=== PATIENT | male | born 1930 | race Caucasian/White ===

== ENCOUNTER 2017-04-02 09:49 | Inpatient (IN) | payer OTHER ==
[~2017-04-02] VITALS: Ht 157.5 cm; Wt 63.5 kg
[~2017-04-02 09:49] MED LIST: 378 PO; ATIVAN0.5 M1 PO; CLA10 PO; COL100 PO; COR3 PO; DUL5 PO; ECO81 PO; FOL1 PO; GAS RELIEF80 MG CH; GEMFIBROZIL600 PO; HEP5I SC; IPRATROPIUM BROM3 M2 HHN; LAC PO; LIPI10 PO; LIPI20 PO; METOPROLOL TART25 M1 PO; NPHOS PO; PEP20 PO; PROTONIX40 MG PO; THERA TABS1 TAB PO; THI100 PO; XAN5 PO; ZES10 PO; [UNRECOGNIZED DRUG - OTHER] IV
--- NOTE | 2017-04-02 10:07 | NUR ---
DR CAMPOS AT BEDSIDE FOR MSE.
--- NOTE | 2017-04-02 10:07 | NUR ---
PT IS A 86 YEAR OLD MALE, PRESENTS TO ED WITH C/O MID UPPER ABDOMINAL PAIN SINCE 0630 THIS AM, NAUSEA WITHOUT VOMITING, NO DIARRHEA OR CONSTIPATION REPORTED. PT REPORTS UPON ASSESSMENT THAT PAIN IS SLOWLY SUBSIDING. PT BREATHING IS EVEN AND UNLABORED, NO S/S OF RESPRAITORY DISTRESS. SPEECH IS CLEAR AND APPROPRIATE. PT A/O X4. SKIN IS WARM, DRY AND INTACT. MSE PERFORMED BY DR. CAMPOS.
[2017-04-02 10:44] LABS: CALCIUM 8.7 mg/dL (8.5-10.1); CHLORIDE SERUM 99 mmol/L (98-107); CREATININE SERUM 0.9 mg/dL (0.7-1.3); GLUCOSE SERUM 168 mg/dL (74-106); POTASSIUM SERUM 3.7 mmol/L (3.5-5.1); SODIUM SERUM 136 mmol/L (136-145)
[2017-04-02 10:56] LABS: ALBUMIN 3.5 g/dL (3.4-5.0); ALKALINE PHOSPHATASE 87 U/L (46-116); ALT/SGPT 22 U/L (16-63); AST/SGOT 22 U/L (15-37); BILIRUBIN TOTAL 0.71 mg/dL (0.20-1.00); TOTAL PROTEIN, SERUM 7.8 g/dL (6.4-8.2)
[2017-04-02 11:16] LABS: BASOPHIL % 0.1 % (0-2); PLATELET COUNT 190 x10^3mcL (130-400); RED CELL DISTRIBUTION WIDTH 14.3 % (11.5-14.5)
[2017-04-02 11:35] LABS: LIPASE 4357 IU/L (73-393)
--- NOTE | 2017-04-02 12:59 | NUR ---
REPORT CALLED TO VELIA ORTIZ, SHE WILL ASSUME CARE PRIMARY RN POST TRANSFER.
[2017-04-02 13:10] LABS: T3 TOTAL 0.87 ng/mL
[2017-04-02 13:12] LABS: FREE T4 1.26 ng/dL (0.76-1.46); FREE THYROXINE INDEX 3.1 ug/dL (1.4-4.5); T4(THYROXINE) 7.8 ug/dL (4.7-13.3)
--- NOTE | 2017-04-02 13:20 | NUR ---
RECEIVED PT FROM ED VIA DENIS, CAME IN DUE TO ABDOMINAL PAIN. AAOX2 (PERSON, PLACE AND BIRTHDATE). ABLE TO FOLLOW COMMANDS. NO SOB NOTED, LUNG SOUNDS DIMINISHED ON AUSCULTATION. DENIES CHEST PAIN/PRESSURE. DENIES ABDOMINAL PAIN/NAUSEA/VOMITING AT THIS TIME. SON AT BEDSIDE. SIDE RAILS UPX2. CALL LIGHT ON REACH. MEDICAL STUDENT AT BEDSIDE. PRIMARY NURSE LIAN AT BEDSIDE FOR CONTINUITY OF CARE
[2017-04-02 13:24] VITALS: BP 152/66
[2017-04-02 13:32] VITALS: Ht 157.5 cm; Wt 63.5 kg
[2017-04-02 14:02] LABS: MAGNESIUM 1.8 mg/dL (1.8-2.4); PHOSPHOROUS 2.9 mg/dL (2.5-4.9)
[2017-04-02 15:57] LABS: microscopic required? NO
[2017-04-02 16:13] VITALS: BP 146/63
[2017-04-02 16:15] LABS: urine erythrocyte NEGATIVE (NEGATIVE)
--- NOTE | 2017-04-02 18:33 | NUR ---
PATIENT SITTING IN BED. SON AT BEDSIDE. AMBULATED IN HALLWAY, NO COMPLAINTS OF FATIGUE. VS STABLE. NO SIGNS OF ACUTE DISTRESS. BED IN LOW POSITION. CALL LIGHT WITHIN REACH. WILL ENDORSE PATIENT TO ONCOMING SHIFT.
--- NOTE | 2017-04-02 20:06 | NUR ---
RECEIVED PT FROM PREVIOUS SHIFT NURSE. PT AOX3. FORGETFUL AT TIMES. TELE #3, NSR, HR 64. DENIES CP/PRESSURE. PULSES PRESENT, NO EDEMA. LUNG SOUNDS DIMINISHED, RA. DENIES SOB/DIFFICULTY BREATHING. BOWEL SOUND ACTIVE. VOIDS FREELY. AMBULATORY. SKIN INTACT. IV IN LFA, INTACT AND PATENT. BED IN LOWEST POSITION. CALL LIGHT WITHIN REACH. WILL CONTINUE TO MONITOR.
[2017-04-02 21:17] VITALS: BP 131/65
[2017-04-03] VITALS (7 sets, daily range): BP systolic 128–167; BP diastolic 60–84
--- NOTE | 2017-04-03 02:00 | NUR ---
PT DOES NOT C/O ANY PAIN. PT RESTING IN BED. RR EVEN AND UNLABORED. NO ACUTE DISTRESS NOTED. CALL LIGHT WITHIN REACH. BED IN LOWEST POSITION. BED ALARM ON. WILL CONTINUE TO MONITOR.
[2017-04-03 05:55] LABS: BASOPHIL % 0.3 % (0-2); PLATELET COUNT 159 x10^3mcL (130-400); RED CELL DISTRIBUTION WIDTH 14.4 % (11.5-14.5)
[2017-04-03 06:23] LABS: AMYLASE 106 U/L (25-115); CALCIUM 8.1 mg/dL (8.5-10.1); CARBON DIOXIDE 26.4 mmol/L (21-32); CHLORIDE SERUM 106 mmol/L (98-107); CREATININE SERUM 0.7 mg/dL (0.7-1.3); GLUCOSE SERUM 73 mg/dL (74-106); LIPASE 1256 IU/L (73-393); MAGNESIUM 1.9 mg/dL (1.8-2.4); PHOSPHOROUS 3.1 mg/dL (2.5-4.9); POTASSIUM SERUM 3.5 mmol/L (3.5-5.1); SODIUM SERUM 141 mmol/L (136-145)
--- NOTE | 2017-04-03 06:54 | NUR ---
REPORT GIVEN TO OR. PRE-OP BATH GIVEN. FAMILY NOTIFIED ABOUT PROCEDURE AT 8AM. DR. SMITH TO INFORM PT ON PROCEDURE AND OBTAIN CONSENT. WILL ENDORSE TO ONCOMING SHIFT NURSE.
--- NOTE | 2017-04-03 07:15 | NUR ---
PATIENT SLEEPING. NO SIGN OF ACUTE DISTRESS. BED IN LOW POSITION. CALL LIGHT WITHIN REACH. GOING FOR PROCEDURE.
--- NOTE | 2017-04-03 07:24 | NUR ---
PATIENT WENT TO OR. VS STABLE AND NO ACUTE DISTRESS.
--- NOTE | 2017-04-03 10:32 | NUR ---
PT BACK FROM OR. DROWSY BUT EASILY ARROUSABLE. DENIES PAIN AT THIS TIME. VS TEMP 97.5 RR 14 HR 56 BP 167/70 MAP 102 02 SAT 98% RA. 4 BANDAIDS TO ABD. CDI. FAMILY AT BEDSIDE. WILL CONTINUE TO MONITOR.
--- NOTE | 2017-04-03 13:01 | NUR ---
PATIENT EATING LUNCH. VERBALIZED RELIEF FROM DILAUDID. NO ACUTE DISTRESS. IV FLUIDS INFUSING. FAMILY AT BEDSIDE. BED IN LOW POSITION. CALL LIGHT WITHIN REACH. WILL CONTINUE TO MONITOR.
[2017-04-03] MEDS ORDERED: LORAZEPAM0.5 MG PO (17:24)
[2017-04-03] MEDS ORDERED: ASPIR 8181 MG PO (17:24)
[2017-04-03] MEDS ORDERED: MULTI-VITAMINS1 TAB PO (17:25)
[2017-04-03] MEDS ORDERED: PHARMASSURE FO0.4 MG PO (17:25)
[2017-04-03] MEDS ORDERED: LISINOPRIL10 MG PO (17:25)
[2017-04-03] MEDS ORDERED: VITAMIN B121000 MCG PO (17:26)
[2017-04-03] MEDS ORDERED: D-20001 TAB PO (17:26)
[2017-04-03] MEDS ORDERED: SYNTHROID25 MCG PO (17:27)
--- NOTE | 2017-04-03 18:55 | NUR ---
PATIENT SLEEPING. NO SIGN OF ACUTE DISTRESS. AMBULATED TO RESTROOM WITH ASSIST EARLIER. IV FLUIDS FLOWING. PT BURPING. TOLERATING DIET WELL. BANDAIDS TO ABD CDI. FAMILY AT BEDSIDE. CALL LIGHT WITHIN REACH. BED IN LOW POSITION. WILL ENDORSE TO INCOMING SHIFT.
--- NOTE | 2017-04-03 19:11 | NUR ---
NURSING CO-SIGN THE DOCUMENTATION ENTERED BY THE RN ELIZABETH HAS BEEN REVIEWED. REVIEWED/CO-SIGNED BY: Delaney Banuelos DOCUMENTATION DONE BY: SANG BURK
--- NOTE | 2017-04-03 19:57 | NUR ---
PT CURRENTLY RESTING IN BED, NO ACUTE DISTRESS. A/O X3, FORGETFUL AT TIMES. NO TELE, MED/SURG. DENIES CHEST PAIN. PULSES PALPABLE IN ALL EXTREMITIES, NO EDEMA NOTED. LUNG SOUNDS DIMINISHED BILATERALLY, DENIES SOB. BOWEL SOUNDS ACTIVE, LAST BM 04/02/17. VOIDING WELL. AMBULATORY. ABD BANDAID X4, CDI. DENIES PAIN AT THIS TIME. IV PATENT AND INTACT. BED IN LOWEST POSITION, SIDE RAILS UP X2, SCDS IN PLACE, CALL LIGHT WITHIN REACH. WILL CONTINUE TO MONITOR.
--- NOTE | 2017-04-04 00:33 | NUR ---
PT CURRENTLY RESTING IN BED, C/O ABD PAIN 01/13, MEDICATED PER EMAR. WILL CONTINUE TO MONITOR.
--- NOTE | 2017-04-04 04:10 | NUR ---
PT C/O OF SEVERE ABD PAIN, MEDICATED PER EMAR. PT STATED UNABLE TO BREATH WELL DUE TO PAIN, O2 ADMINISTERED VIA NASAL CANULA AT 2L. BLOOD PRESSURE 200/94, DR RAMIREZ AWARE, MEDICATED PER EMAR. WILL CONTINUE TO MONITOR.
[2017-04-04 04:43] LABS: BASOPHIL % 0.3 % (0-2); PLATELET COUNT 191 x10^3mcL (130-400); RED CELL DISTRIBUTION WIDTH 14.3 % (11.5-14.5)
[2017-04-04 05:02] LABS: ALKALINE PHOSPHATASE 102 U/L (46-116); ALT/SGPT 73 U/L (16-63); AST/SGOT 100 U/L (15-37); BILIRUBIN TOTAL 1.1 mg/dL (0.20-1.00); CARBON DIOXIDE 21.5 mmol/L (21-32); CHLORIDE SERUM 105 mmol/L (98-107); CREATININE SERUM 0.9 mg/dL (0.7-1.3); GLUCOSE SERUM 220 mg/dL (74-106); LIPASE 170 IU/L (73-393); POTASSIUM SERUM 4.5 mmol/L (3.5-5.1); SODIUM SERUM 136 mmol/L (136-145); TOTAL PROTEIN, SERUM 6.8 g/dL (6.4-8.2)
[2017-04-04 05:03] LABS: ALBUMIN 2.8 g/dL (3.4-5.0)
[2017-04-04 05:48] VITALS: BP 130/82
--- NOTE | 2017-04-04 06:29 | NUR ---
PT SLEPT PERIODICALLY THROUGHOUT NIGHT, NO ACUTE DISTRESS. ALL NEEDS MET AND ATTENDED TO. NO SIGNIFICANT CHANGES. IV PATENT AND INTACT. MEDICATED PAIN PER EMAR. SIDE RAILS UP X2, SCDS IN PLACE, CALL LIGHT WITHIN REACH. WILL ENDORSE CARE TO ONCOMING NURSE.
--- NOTE | 2017-04-04 10:05 | NUR ---
AT 0705 - RECEIVED PATIENT FROM NIGHT NURSE. PATIENT SITTING ON SIDE OF BED AND APPEARS TO HAVE GONE TO SLEEP. WOKE UP PATIENT AND ASSISTED TO LIE IN BED. BED EXIT ALARM ACTIVATED. PATIENT APPEARS ORIENTED TO PERSON AND PLACE. HARD OF HEARING AND CZECH SPEAKING. MONITOR SHOWING SINUS RHYHTM; RATE 93. IV INFUSING D5 1/2 NS WITH 20 MEQ KCL AT 70 ML/HR. DRESSINGS TO SURGICAL INCIISONS ON ABDOMEN ARE DRY AND INTACT. AT 0800 - PATIENT TOLERATING CLEAR LIQUIDS BUT WHEN ATTEMPTED FULL LIQUID FOR BREAKFAST, STARTED VOMITING. SEEN BY DR BAUER. NEW ORDERS RECEIVED. AT 0820 - SEEN BY DR PENDLETON DURING MORNING ROUNDS. MEDICAL TEAM DOCTORS, JLUIS HAMPTON AND MYSELF PRIMARY NURSE ALSO PRESENT. DR PENDLETON SPOKE WUTH PATIENT THROUGH SOLAR PHOTOVOLTAIC DESIGNER. PATIENT ENCOURAGED BY TO USE INSENTIVE SPIROMETER. AT 0900 - PHYSICAL THERAPY AT BEDSIDE. AT 0935 - MEDICATED WITH NORCO FOR PAIN. AT 1020 - FAMILY AT BEDSIDE AND UPDATED ON PATIENT CONDITION AND PLAN OF CARE. PATIENT ABLE TO USE INSENTIVE SPIROMTER EFFECTIVELY BUT NEEDS SOMEONE TO ALWAYS ASSIST HIM WITH IT.
[2017-04-04 10:39] VITALS: BP 141/65
[2017-04-04 13:41] VITALS: BP 143/66
--- NOTE | 2017-04-04 14:25 | NUR ---
AT 1330 - PATIENT AMBULATED IN HALLWAY WITH ASSISTANCE. GOOD TOLERANCE FOR ACTIVITY. O2 SAT 96% ON ROOM AIR AFTER AMBULATION. KEPT OFF SUPPLIMENTAL O2. USING INSENTIVE SPIROMETER HOURLY WITH ASSISTANCE.
--- NOTE | 2017-04-04 16:21 | NUR ---
PHYSICAL THERAPY DAILY NOTES CO-SIGN All documentation done by the Partner Cco for 04/04/17 has been reviewed. I agree with the documentation. Reviewed/Co-Signed by: María Elena Mendez PT Documentation Done by:SHERIDAN GROVES ER RN PROGRESSING W/ GAIT ENDURANCE & FUNC MOB., EMPHASIS ON ENERGY CONSERVATION TECH.
[2017-04-04 17:32] VITALS: BP 130/60
--- NOTE | 2017-04-04 18:45 | NUR ---
PATIENT GIVEN TYLANOL PER EMAR FOR TEMP OF 100.6. BP STABLE AND WNL. IV INFUSION OF D5 1/2 NS WITH 20 MEQ KCL AT 50ML/HR. VOIDING IN URINAL AND BATHROOM. TOLERATING CLEAR LIQUID DIET WITH NO NAUSEA OR VOMITING THIS PM. DIET TO ADVANCE TO FULL LIQUID. PAIN UNDER CONTROL WITH PO NORCO. USING INSENTIVE SPIROMTER HOURLY WITH ASSISTANCE. WILL ENDORSE CARE TO NIGHT NURSE.
--- NOTE | 2017-04-04 19:42 | NUR ---
PT IS A/O X2, CONFUSED, AND FORGETFUL, ABLE TO TELL WHAT HE NEEDS. LUNG SOUND DIM BILATERAL BASE, NO COUGH, NO SOB, PT IS ON 2L/MIN O2 VIA NC, PO2 95% PT IS ON MS AT THIS MOMENT, DENY ANY CHEST PAIN OR DISCOMFORT, BOWEL SOUND PRESENT ALL 4 QUADRANTS, NO DISTENTION, NO TENDER. PEDAL PULSE PRESENT BOTH FEET, NO EDEMA, IV AT LEFT FA, NO LEAKING, NO INFILTRATION. ALL ADLS ASSIST, ALL NEED MET, CALL LIGHT IN REACH, WILL CONTINUE TO MONITOR.
[2017-04-04 21:52] VITALS: BP 134/68
--- NOTE | 2017-04-05 04:56 | NUR ---
REPORT TO DR. RAMIREZ PT IS NOT ON TELE MONITOR AND PT HAS ORDER FOR LABETALOL, PT B/P 134/77 AT THE MOMENT, DR. RAMIREZ MADE AWARE, AND D/C THE MEDICATION. WILL CONTINUE TO MONITOR THE PT.
--- NOTE | 2017-04-05 05:14 | NUR ---
PT IS SLEEPING, AWAKE BY TOUCH, NO S/S OF RESPIRATORY DISTRESS, NO S/S OF PAIN OR DISCOMFORT, IV AT LEFT FA, NO LEAKING, NO INFILTRATION. ALL ADLS ASSIST, ALL NEED MET, CALL LIGHT IN REACH, WILL CONTINUE TO MONITOR.
--- NOTE | 2017-04-05 06:10 | NUR ---
PT HAS TEMP 100.7, TYLENOL IS GIVEN, DR. RAMIREZ [facility]. WILL CONTINUE TO MONITOR THE PT.
[2017-04-05 06:26] VITALS: BP 127/96
[2017-04-05 06:32] LABS: BASOPHIL % 0.1 % (0-2); PLATELET COUNT 203 x10^3mcL (130-400)
[2017-04-05 06:39] LABS: ALKALINE PHOSPHATASE 76 U/L (46-116); ALT/SGPT 53 U/L (16-63); AST/SGOT 60 U/L (15-37); BILIRUBIN DIRECT 1.24 mg/dL (0.0-0.2); BILIRUBIN TOTAL 2.14 mg/dL (0.20-1.00); CALCIUM 7.8 mg/dL (8.5-10.1); CARBON DIOXIDE 17.8 mmol/L (21-32); CHLORIDE SERUM 103 mmol/L (98-107); CREATININE SERUM 1.2 mg/dL (0.7-1.3); GLUCOSE SERUM 136 mg/dL (74-106); POTASSIUM SERUM 4.1 mmol/L (3.5-5.1); SODIUM SERUM 134 mmol/L (136-145)
[2017-04-05 06:40] LABS: ALBUMIN 2.3 g/dL (3.4-5.0); TOTAL PROTEIN, SERUM 5.8 g/dL (6.4-8.2)
[2017-04-05 07:42] LABS: RED CELL DISTRIBUTION WIDTH 14.8 % (11.5-14.5)
--- NOTE | 2017-04-05 07:43 | NUR ---
AT 0715 - RECEIVED PATIENT FROM NIGHT NURSE. PATIENT AWAKE, ALERT. COOLING MEASURES IN PLACE. IV INFUSING D5 1/2 NS WITH 20 MEQ KCL AT 50ML/HR. PATIENT ON O2 VIA NC AT 3L/MIN. RT AT BEDSIDE. EXPIRATORY WHEEZE AND DIM BREATH SOUNDS RODOLFO. NOTED SOME DYSPNEA. AT 0740 - SAT UP IN BED FOR BREAKFAST. ABLE TO TAKE ONLY SMALL AMOUNTS OF FLUIDS. USED INSENTIVE SPIROMETER WITH ASSISTANCE. AT 0750 - RECEIVED CALL FROM LAB WITH WBC RESULT OF 2.1. PRINTED SHEET WITH HIGHLIGHTED RESULT GIVEN TO DR HAYES IN CONFERENCE.
--- NOTE | 2017-04-05 09:18 | NUR ---
AT 0830 - RECEIVED CALL FROM PATIENT'S DAUGHTER. UPDATED ON PATIENT CONDITION AND PLAN OF CARE. TEMP NOW 98.1 AT 0845 - IV IN LFA INFILTRATED. IV CATHETER REMOVED INTACT. IV RESITED IN L HAND AND TODAY'S DOSE OF IV LEVAQUIN COMMENCED. AT 0905 - PATIENT'S SON AT BEDSIDE. UPDATED ON PATIENT . AWAITING DR BURNHAM.
[2017-04-05 09:39] LABS: rbc morphology (normal/abnorm) NORMAL (NORMAL)
[2017-04-05 09:40] VITALS: BP 100/55
--- NOTE | 2017-04-05 09:43 | NUR ---
SEEN BY DR ALVARADO DURING MORNING ROUNDS. MEDICAL TEAM DOCTORS, JLUIS ELIAS AND MYSELF PRIMARY NURSE ALSO PRESENT. SPOKE WITH PATIENT ABOUT PLAN TO DC HOME LATER TODAY AND THE PLANNED CONTINUATION OF TREATMENT UPON DISCHARGE. PATIENT REPROTS THAT HER O2 TANK AND SUPPLIES ARE WORKING WELL, BUT THAT SHE NEEDS NEW NEBULIZER EQUIPMENT.
--- NOTE | 2017-04-05 10:24 | NUR ---
AT 1000 - SEEN BY DR ALVARADO DURING MORNING ROUNDS. MEDICAL TEAM DOCTORS, JLUIS ELIAS AND MYSELF PRIMARY DOCTORS ALSO PRESENT. SPOKE WITH PATIENT AND SON ABOUT CURRENT PLAN OF TREATMENT AND ANSWERED SON'S QUESTIONS. AT 1020 - SEEN BY DR SMITH. NEW ORDERS RECEIVED. PATIENT PLACED ON NPO AT THIS TIME. FOR REPEAT KUB.
--- NOTE | 2017-04-05 13:16 | NUR ---
PATIENT AMBULATED WITH PHYSICAL THERAPY, SHORT DISTANCE IN HALLWAY, USING A WALKER. PATIENT HAD SOB AND APPEARED WEAKER THAN WHEN AMBULATING YESTERDAY. ON RETURN TO BED, O2 SAT 82% ON ROOM. INCREASED TO 95% ON 3L O2 VIA NC. PATIENT POSITIONED FOR COMFORT. NPO AT THIS TIME PER ORDERS. AWAITING KUB AND CHEST X-RAY ORDERED BY DR SMITH.
--- NOTE | 2017-04-05 13:56 | NUR ---
RADIOLOGY AT BEDSIDE.
--- NOTE | 2017-04-05 16:53 | NUR ---
PATIENT RESTING QUIETLY. FAMILY AT BEDSIDE. SPOKE WITH DAUGHTER TOMEKA AND UPDATED ON PATIENT. PATIENT HAS BEEN ASSISTED WITH USE OF INSENTIVE SPIROMETER BUT UNABLE TO USE EFFECTIVELY TODAY. PATIENT APPEARS CONSIDERABLY WEAKER WITH MORE DYSPNEA TODAY. HAS BEEN SEEN BY DR ALONSO EARLIER. DR ALONSO MADE AWARE OF KUB RESULT (MILD ILIUS) AND CHEST X-RAY RESULT.
--- NOTE | 2017-04-05 17:33 | NUR ---
CALLED AND WANTS TO KNOW THE RESULTS OF THE CXR AND KUB AND RELAYED TO HIM THE RESULTS.
--- NOTE | 2017-04-05 18:30 | NUR ---
AT 1710 - PATIENT AMBULATED TO BATHROOM. SAT ON TOILET FOR APPROX 15 MIN. REPORTS PASSING GAS BUT NO BM. C/O CONSTIPATION. PATIENT RETURNED TO BED AND GIVEN DULCOLAX SUPPOSITORY PER EMAR. FAMILY REMAINS AT BEDSIDE. PATIENT HAS MARKED SOB ON EXERTION. AT 1830 - PATIENT AWAKE, ALERT. PATIENT HAS SOB WITH EXP WHEEZE. O2 SAT 91% ON 3L VIA NC. CALLED RT FOR BREATHING TREATMENT. REMAINS AFEBRILE. NPO. IV INFUSING D5 1/2 NS WITH 20 MEQ KCL AT 50ML/HR. NO BM YET. WILL ENDORSE CARE TO NIGHT NURSE.
[2017-04-05 18:40] VITALS: BP 123/73
--- NOTE | 2017-04-05 19:30 | NUR ---
PT. DAUGHTER IS STAYING THE NIGHT. ALL QUESTIONED ANSWERED. WILL CONTINUE TO MARK ANTHONY.
--- NOTE | 2017-04-05 19:30 | NUR ---
PT. IS UNABLE TO FOLLOW COMMANDS. PATIENT IS HAVING DIFFICULTY BREATHING. WENT SPO2 ON NASAL 4L WAS 85%. REPLACED NASAL WITH MASK WITH 10L. SPO2 WAS 93%. PLACED A NON-REBREATHER WITH 15L, SPO2 AT 94%. PT. DEMOSTRATED LABORED BREATHING WITH THE NON-REBREATHER. RT WAS NOIFIED. LUNG SOUNDS WITH RALES, BILATERALLY. WILL CONTINUE TO MONITOR.
--- NOTE | 2017-04-05 19:40 | NUR ---
RT ASSESSED PT. SUGGEST BI-PAP MACHINE. DR. GUIDO CAME TO ASSESS PT. ORDED ABG AND BI-PAP. VINICIUS HEAD TO MARK ANTHONY.
--- NOTE | 2017-04-05 20:14 | NUR ---
PHYSICAL THERAPY DAILY NOTES CO-SIGN All documentation done by the Hot Roll Inspector for 04/05/17 has been reviewed. I agree with the documentation. Reviewed/Co-Signed by: Evelyn Nix, JESUST Documentation Done by: Tyrone Paiz, ROSE Patient fairly karlo tx, noted slight delince in activity karlo, cont need of O2 during activity, gait unsteady and noted SOB upon exertion. Cont with PT POC karlo/safe.
[2017-04-05 21:03] VITALS: BP 134/89
--- NOTE | 2017-04-05 21:16 | NUR ---
REPORT TO DR. RAMIREZ REGARDING THE ABG RESULT, MADE AWARE, WILL CONTINUE TO MONTIOR THE PT.
--- NOTE | 2017-04-05 21:24 | NUR ---
PT. WAS UNABLE TO FOLLOW COMMAND TO TAKE PO MED. DR. GUIDO MADE AWARE.
--- NOTE | 2017-04-05 21:30 | NUR ---
PT. IS ON THE BI-PAP. SPO2 AT 95-96%. WILL CONTINUE TO [facility].
--- NOTE | 2017-04-05 21:38 | NUR ---
PT. IS RESTLESS, WANT TO VOID BUT UNABLE TO. CALL DR. RAMIREZ TO REQUEST LARIOS. MADE AWARE. WAITING ON ORDER. WILL CONTINUE TO MARK ANTHONY.
--- NOTE | 2017-04-05 23:13 | NUR ---
PLACED LARIOS IN PER DM ORDER. 300ML OF GERA URINE WAS RELEASED WHEN INSERTED. BALLON FILLED WITH 10CC OF NORMAL SALINE. SECURED ON RIGHT UPPER THIGH. PT. TOLERATED WELL. WILL CONTINUE TO MONTIOR.
--- NOTE | 2017-04-06 | NUR ---
COLLECTED URINE SAMPLE FROM LARIOS. DAUGHTER PRESENT IN THE ROOM. PT. WAS FIDGETING, TRYING TO REMOVE PULSE OX. TEACHING REINFORCED. WILL CONTINUE TO MONITOR.
--- NOTE | 2017-04-06 00:50 | NUR ---
PT WAS FOUND UNRESPONSIVE AND NO BREATHING, NO PULSE, UNABLE TO TAKE B/P. INITIATE CODE BLUE. SEE CODE BLUE SHEET.
[2017-04-06 01:05] LABS: UA SPECIFIC GRAVITY 1.025 (1.005-1.035); microscopic required? YES; urine erythrocyte 2+ (NEGATIVE)
--- NOTE | 2017-04-06 01:08 | NUR ---
CODE BLUE UNSUCCESSFUL, PT WAS PRONOUNCED BY DR. MAGDALENA CARVALHO AT 0108. DR. MAGDALENA CARVALHO AND AMY HURST TALKED TO DAUGHTER CASSI.
--- NOTE | 2017-04-06 01:28 | NUR ---
AT 0128, CALLED [facility]. TALKED TO MAXI, .
--- NOTE | 2017-04-06 01:55 | NUR ---
AT 0133 CALLED [facility], TALKED TO ALEX, AND AT 0155, [facility] CALL BACK, REPOR TO [place], BODY RELEASED BY [facility], .
--- NOTE | 2017-04-06 05:10 | NUR ---
SECURITY TAKE BODY TO EITANJohn.
== END 2017-04-06 05:15 | disposition expired | DRG 417 ==
LOC: ED 09:49 → DU 12:31 → MU 12:31 → DU 13:28 → MU 04-03 07:07 → DU 04-04 17:38 → MU 04-04 23:10 → DU 04-05 22:39
PROVIDERS: Emergency Medicine; Internal Medicine; Surgery; ADMIT Family Medicine
PROC: 0FT44ZZ Resection of Gallbladder, Percutaneous Endoscopic Approach (ICD-10-PCS; principal; 2017-04-03 08:00)
DX: K80.10 Calculus of gallbladder with chronic cholecystitis without obstruction (principal); K85.90 Acute pancreatitis without necrosis or infection, unspecified; E43 Unspecified severe protein-calorie malnutrition; E11.9 Type 2 diabetes mellitus without complications; F10.20 Alcohol dependence, uncomplicated; D64.9 Anemia, unspecified; E80.6 Other disorders of bilirubin metabolism; E78.5 Hyperlipidemia, unspecified; E02 Subclinical iodine-deficiency hypothyroidism; I10 Essential (primary) hypertension; E66.3 Overweight; Z68.25 Body mass index [BMI] 25.0-25.9, adult; Z79.84 Long term (current) use of oral hypoglycemic drugs
CPT/HCPCS: 82962; 83880; 84439; 97110-GP; 97116-GP; 97530-GP; J0171; J0690; J0696; J1170; J1956; J2405; J2704; J2710; J2765; J3010; J3480; J3490; J7030; J7620; J8597; Q0092